=== PATIENT | female | born 1960 | race Two or more races ===

== ENCOUNTER 2019-02-14 17:49 | Inpatient (IN) | payer MEDICAID ==
[~2019-02-14] VITALS: Ht 157.5 cm; Wt 63.6 kg
--- NOTE | 2019-02-14 17:52 | NUR ---
ED Nurse Note: PT FROM [facility] BROUGHT IN BY [id number] DUE TO TRACH MALFUNCTION. EMS REPORTS THAT PT WAS COUGHING X 2 DAYS. PT WAS SEEN BY A PULMONARY DOCTOR THIS MORNING RECOMMENDED TO BE EVALUATED. AAO X4, FOLLOWS COMMANDS AND SPEAKS WITHOUT DIFFICULTY.
[2019-02-14] MEDS ORDERED: ATORVASTATIN CA20 MG GT (17:59)
[2019-02-14] MEDS ORDERED: PROTONIX20 MG GT (17:59)
[2019-02-14] MEDS ORDERED: MULTI-DELYN237 ML GT (17:59)
[2019-02-14] MEDS ORDERED: NORCO 10-325 T1 EACH GT (17:59)
[2019-02-14] MEDS ORDERED: COLACE100 MG GT (17:59)
[2019-02-14] MEDS ORDERED: MILK OF MA400 MG/51 GT (17:59)
[2019-02-14 18:00] VITALS: BP 126/78
--- NOTE | 2019-02-14 18:13 | NUR ---
ED Nurse Note: RT GERMAINE AT THE BED SIDE.
--- NOTE | 2019-02-14 18:45 | NUR ---
ED Nurse Note: RT AT THE BED SIDE AND REPORTS THAT HE WAS UNABLE TO INSERT A CATHETER INSIDE THE TRACH CANNULA AND THERE MIGHT BE A POSSIBLE OBSTRUCTION. DR MICHAEL AWARE.
--- NOTE | 2019-02-14 18:48 | NUR ---
ED Nurse Note: RT AT THE BED SIDE FOR CXR.
--- NOTE | 2019-02-14 19:13 | NUR ---
ED Nurse Note: COLLECTED BLOOD THEN SENT.
--- NOTE | 2019-02-14 19:20 | NUR ---
HAND-OFF: Report given to SYDNI MCKOY.
[2019-02-14 19:27] LABS: BASOPHILS % (AUTO) 1.4 % (0.0-2.0); HEMATOCRIT 35.2 % (37.0-47.0); HEMOGLOBIN 12.5 G/DL (12.0-16.0); LYMPHOCYTES % (AUTO) 26.4 % (20.0-45.0); MEAN CORPUSCULAR VOLUME 85 FL (80-99); MONOCYTES % (AUTO) 7.4 % (1.0-10.0); NEUTROPHILS % (AUTO) 64.8 % (45.0-75.0); PLATELET COUNT 392 K/UL (150-450); RED BLOOD COUNT 4.13 M/UL (4.20-5.40); RED CELL DISTRIBUTION WIDTH 11.8 % (11.6-14.8); WHITE BLOOD COUNT 11.7 K/UL (4.8-10.8)
[2019-02-14 19:37] LABS: INR 0.9 (0.9-1.1)
[2019-02-14 19:43] LABS: ANION GAP 6 mmol/L (5-15); BLOOD UREA NITROGEN 9 mg/dL (7-18); CARBON DIOXIDE 31 MMOL/L (21-32); CHLORIDE 105 MMOL/L (98-107); CREATININE 0.7 MG/DL (0.55-1.30); POTASSIUM 3.9 MMOL/L (3.5-5.1); SODIUM 142 MMOL/L (136-145)
[2019-02-14 19:45] LABS: ALANINE AMINOTRANSFERASE 33 U/L (12-78); ALBUMIN 3.5 G/DL (3.4-5.0); ALBUMIN/GLOBULIN RATIO 0.7 (1.0-2.7); ALKALINE PHOSPHATASE 162 U/L (46-116); ASPARTATE AMINO TRANSFERASE 14 U/L (15-37); BILIRUBIN,TOTAL 0.4 MG/DL (0.2-1.0)
--- NOTE | 2019-02-14 19:58 | Diagnostic Imaging Report ---
Indication: Tube placement Technique: One view of the chest Comparison: none Findings: There is a tracheostomy in good position. There is right-sided presumed ventriculoperitoneal shunt tubing. There is a right arm PICC, tip of which terminates at the C7 level of the right subclavian vein. Lungs and pleural spaces are clear. The heart size is normal. Impression: No acute process Tube and line positions as described This agrees with the preliminary interpretation provided overnight by [facility] teleradiology service.
--- NOTE | 2019-02-14 20:20 | NUR ---
ED Nurse Note: Patient reports headache, ERMD informed and orders to be carried out.
[2019-02-14] MEDS ORDERED: Acetaminophen 500mg (ES) tab ORAL ONE (20:30)
--- NOTE | 2019-02-14 21:10 | NUR ---
ED Nurse Note: Called and rendered report to Orlando MCKOY.
--- NOTE | 2019-02-14 21:15 | NUR ---
ED Nurse Note: Patient escorted to floor by 2 RN's and coordinate measuring machine technician without incident.
--- NOTE | 2019-02-14 21:21 | Emergency Room Report ---
History of Present Illness General Chief Complaint: General Complaint Source: Patient, Family Member, EMS Present Illness HPI 58-year-old female presents ED for evaluation. Brought in by EMS from group home facility. Is here for evaluation of trach. Has been coughing for the last several days. Was seen by varnisher apprentice today who recommended a trach to be replaced. Daughter at bedside. Upon arrival patient showing no signs of distress. Unable to provide any additional history at this time. No reported fevers or chills. No chest pain. No shortness of breath. No other aggravating relieving factors. Denies any other associated symptoms Allergies: Coded Allergies: No Known Allergies (Unverified , 02/14/19) Patient History Past Medical History: DM Past Surgical History: none Pertinent Family History: none Social History: Denies: smoking, alcohol use, drug use Now: No Immunizations: UTD Reviewed Nursing Documentation: PMH: Agreed; PSxH: Agreed Nursing Documentation-PMH Past Medical History: No History, Except For Hx Diabetes: Yes Review of Systems All Other Systems: limited Physical Exam Vital Signs Date Time Temp Pulse Resp B/P (MAP) Pulse Ox O2 Delivery O2 Flow Rate FiO2 02/14/19 17:42 98.4 87 17 120/83 (95) 95 Trach Collar 4.0 Sp02 EP Interpretation: reviewed, normal General Appearance: no apparent distress, non-toxic Head: normocephalic Eyes: bilateral eye normal inspection, bilateral eye PERRL ENT: hearing grossly normal, normal pharynx, no angioedema, normal voice Neck: full range of motion, supple/symm/no masses, tracheotomy - unable to cannulate. Respiratory: chest non-tender, lungs clear, normal breath sounds, speaking full sentences Cardiovascular #1: regular rate, rhythm, no edema Gastrointestinal: normal inspection Rectal: deferred Genitourinary: no CVA tenderness Musculoskeletal: normal inspection Neurologic: alert, motor strength/tone normal Psychiatric: other - nonverbal Skin: other - see nursin skin notes Lymphatic: normal inspection Procedures Critical Care Time Critical Care Time i. I feel this is a highly complex case requiring extensive working including EKG/Rhythm strip, Xray/CT/US, Blood/urine lab work, repeat exams while in ED, and administration of strong opiates/narcotics for pain control, admission to hospital or close patient follow up. Total time: 30 min bedside evaluation and treatment excludes procedures (EKG). Reason for critical care: malfunctioning trach Possible complications: hypotension, hypertension, TN, shock, arrhythmias, metabolic acidosis, end organ damage, respiratory failure. Interventions: labs, EKG, CXR, attempt to replace trach, discussion with billet shearer/varnisher apprentice Course: Presenting for trach replacement. No distress. Upon evaluation trach does not appear to be fully flush to the skin. Unable to cannulate or place suction catheter through the trach. I am concerned that it is not in place. To attempt placement in the ED could cause hemorrhage or loss of airway. Discussed with surgeon who recommends replacement via bronchoscopy. Admit to the ICU. Consultations: nursing staff, EMS, family Performed by: Dr Womack Tolerated well condition = critical j. because of unstable vital signs this patient had a condition that could potentially threaten life or limb. I feel this is a critical patient who required my full attention while patient was considered critical. Total Critical Care Time excluding procedures was greater than 35 minutes Medical Decision Making Diagnostic Impression: Primary Impression: Malfunction of tracheostomy ER Course Hospital Course 58 yo F presents for trach replacement Differential diagnoses include: Pneumonia, disloged trach, CHF Clinical course Patient placed on stretcher. On monitor tech. After initial 3, physical exam reveals middle-aged female no acute distress. On exam the trach does not appear to be completely flush to the skin. With a respiratory therapist at bedside we were unable to cannulate the tracheostomy. Concerned that it does not in place or there appears to be a stenosis of the trachea. At this time I do not believe it is to change tracheostomy at bedside as we could lose the airway or cause a hemorrhage. discussed with surgery Dr. Bustillos and he agrees. Recommends changing of tracheostomy at via bronchoscopy labs - minimal leukocytosis, hb/hct stable, electrolytes ok, coags ok EKG - NSR no acute ischemic changes inteprreted by me CXR - no infiltrtes, no PTX, tracheostomy tube noted Patient satting well. No distress. Will be admitted to the ICU for close monitoring Case discussed with Dr. Alexander and he agreed to the patient to his service for further care and support I feel this is a highly complex case requiring extensive working including EKG/ Rhythm strip, Xray/CT/US, Blood/urine lab work, repeat exams while in ED, and administration of strong opiates/narcotics for pain control, admission to hospital or close patient follow up. Diagnosis - malfunction of tracheostomy Patient admitted to ICU Labs Test 02/14/19 19:10 White Blood Count 11.7 K/UL (4.8-10.8) Red Blood Count 4.13 M/UL (4.20-5.40) Hemoglobin 12.5 G/DL (12.0-16.0) Hematocrit 35.2 % (37.0-47.0) Mean Corpuscular Volume 85 FL (80-99) Mean Corpuscular Hemoglobin 30.3 PG (27.0-31.0) Mean Corpuscular Hemoglobin Concent 35.6 G/DL (32.0-36.0) Red Cell Distribution Width 11.8 % (11.6-14.8) Platelet Count 392 K/UL (150-450) Mean Platelet Volume 5.7 FL (6.5-10.1) Neutrophils (%) (Auto) 64.8 % (45.0-75.0) Lymphocytes (%) (Auto) 26.4 % (20.0-45.0) Monocytes (%) (Auto) 7.4 % (1.0-10.0) Eosinophils (%) (Auto) 0.0 % (0.0-3.0) Basophils (%) (Auto) 1.4 % (0.0-2.0) Prothrombin Time 10.0 SEC (9.30-11.50) Prothromb Time International Ratio 0.9 (0.9-1.1) Activated Partial Thromboplast Time 30 SEC (23-33) Sodium Level 142 MMOL/L (136-145) Potassium Level 3.9 MMOL/L (3.5-5.1) Chloride Level 105 MMOL/L (98-107) Carbon Dioxide Level 31 MMOL/L (21-32) Anion Gap 6 mmol/L (5-15) Blood Urea Nitrogen 9 mg/dL (7-18) Creatinine 0.7 MG/DL (0.55-1.30) Estimat Glomerular Filtration Rate > 60 mL/min (>60) Glucose Level 108 MG/DL (74-106) Calcium Level 9.0 MG/DL (8.5-10.1) Total Bilirubin 0.4 MG/DL (0.2-1.0) Aspartate Amino Transf (AST/SGOT) 14 U/L (15-37) Alanine Aminotransferase (ALT/SGPT) 33 U/L (12-78) Alkaline Phosphatase 162 U/L (46-116) Total Protein 8.2 G/DL (6.4-8.2) Albumin 3.5 G/DL (3.4-5.0) Globulin 4.7 g/dL Albumin/Globulin Ratio 0.7 (1.0-2.7) EKG Diagnostic Results Rate: normal Rhythm: NSR ST Segments: no acute changes ASA given to the pt in ED: No Rhythm Strip Diag. Results EP Interpretation: yes Rhythm: NSR, no PVC's, no ectopy Chest X-Ray Diagnostic Results Chest X-Ray Diagnostic Results : Chest X-Ray Ordered: Yes # of Views/Limited/Complete: 1 View Indication: Other - trach placement EP Interpretation: Yes Interpretation: no consolidation, no effusion, no pneumothorax, no acute cardiopulmonary disease, other - tracheostomy noted Impression: No acute disease Electronically Signed by: Electronically signed by Jaylon Womack MD Last Vital Signs Date Time Temp Pulse Resp B/P (MAP) Pulse Ox O2 Delivery O2 Flow Rate FiO2 02/14/19 21:08 98.4 02/14/19 18:00 87 20 126/78 98 Trach Collar 5.0 Status: improved Disposition: ADMITTED INPATIENT Condition: Critical Referrals: Wil Alexander MD (PCP) Jaylon Womack MD Feb 14, 2019 21:21
[2019-02-14 21:32] VITALS: BP 132/84
[2019-02-14 21:41] VITALS: BP 116/76
[2019-02-14 22:00] VITALS: BP 109/74
[2019-02-14] MEDS ORDERED: Milk of Magnesia 30ml Ud GT PRN (22:00)
[2019-02-14] MEDS ORDERED: HYDROcodone/Acetamin 10/325 tab GT PRN (22:00)
--- NOTE | 2019-02-14 22:04 | NUR ---
NURSE NOTES: 2129PM : RECEIVED PATIENT FROM ER NURSE EAN TROY VIA ELIEL. PATIENT ALERT, ORIENTED X3, DENIED PAIN OR SOB AT THAT TIME, ON TRACH COLLAR 5LPM, O2 SATURATION 100% NOTED, HEART RATE 80'S/MIN SINUS RHYTHM, ABDOMEN SOFT, NO N/V NOTED, G TUBE INTACT AND PATENT, NO RESIDUE NOTED, MID LINE TO RIGHT UPPER ARM, INTACT AND PATENT, SIN IS INTACT, GIVEN HOSPITAL ORIENTATION, PROVIDED CALL LIGHT WITHIN REACH, ON BED ALARM AND LOCKED, MADE LOWER BED POSITION, WILL CONTINUE TO MONITOR. 2144PM : PT'S DAUGHTER STAYED AT BEDSIDE.
[2019-02-14] MEDS ORDERED: Albuterol/Ipratropium 3ml neb HHN PRN (22:15)
[2019-02-14 22:30] VITALS: BP 113/76
[2019-02-14 23:00] VITALS: BP 106/72
--- NOTE | 2019-02-14 23:20 | NUR ---
NURSE NOTES: PATIENT ASLEEP STATUS, NO PAIN OR DISTRESS NOTED, FAMILY AT BEDSIDE, WILL CONTINUE PLAN OF CARE.
[2019-02-14] MEDS: NovoLOG Insulin Flexpen SUBQ SCH (23:49)
[2019-02-15] VITALS (24 sets, daily range): BP systolic 99–145; BP diastolic 64–114
--- NOTE | 2019-02-15 00:35 | Consultation ---
History of Present Illness General Date patient seen: Feb 14, 2019 Reason for Hospitalization: General Complaint Present Illness HPI 58-year-old female who was brought in by EMS from [facility] facility [place] [facility] [place] after noting recent trach malfunction. Has been coughing for the last several days. Was seen by laborer dairy farm today who recommended a trach to be replaced. Daughter at bedside in ED and now patient alone. Upon arrival patient showing no signs of distress. Unable to provide any additional history at this time. No reported fevers or chills. No chest pain. No shortness of breath. No other aggravating relieving. Surgery called to evaluate and assist with care. patient seen chart reviewed, patient examined. Allergies: Coded Allergies: No Known Allergies (Unverified , 02/14/19) Medication History Scheduled Atorvastatin Calcium* (Atorvastatin Calcium*), 20 MG GT BEDTIME, (Reported) Docusate Sodium* (Colace*), 100 MG GT DAILY, (Reported) Multivitamin Liquid* (Multi-Delyn*), 15 ML GT DAILY, (Reported) Pantoprazole Sodium (Protonix), 40 MG GT DAILY, (Reported) Scheduled PRN Hydrocodone Bit/Acetaminophen 10-325* ([place] 10-325*), 1 TAB GT Q4H PRN for For Pain, (Reported) Magnesium Hydroxide* (Milk Of Magnesia*), 30 ML GT DAILY PRN for Constipation, ( Reported) Patient History Limited by: medical condition History Provided By: Medical Record, PMD Healthcare decision maker Resuscitation status Advanced Directive on File Past Medical/Surgical History Past Medical/Surgical History: (1) Malfunction of tracheostomy Review of Systems Review of Symptoms cannot obtain given medical condition Physical Exam Physical Exam General appearance: no distress, appears stated age Head: Normocephalic, without obvious abnormality, atraumatic Eyes: conjunctivae/corneas clear. PERRL, EOM's intact. Fundi benign Throat: Lips, mucosa, and tongue normal. Teeth and gums normal Neck: supple, symmetrical, trachea midline, no adenopathy, trach malpositioned Lungs: decreased auscultation bilaterally Heart: regular rate and rhythm, S1, S2 normal, no murmur, click, rub or gallop Abdomen: soft, non-tender. Bowel sounds normal. No masses, no organomegaly Extremities: extremities normal, atraumatic, no cyanosis or edema Pulses: 2+ and symmetric Skin: Skin color, texture, turgor normal. No rashes or lesions Neurologic: Grossly normal Last 24 Hour Vital Signs Date Time Temp Pulse Resp B/P (MAP) Pulse Ox O2 Delivery O2 Flow Rate FiO2 02/14/19 23:35 Trach Collar 10.0 30 02/14/19 23:34 97 Trach Collar 10.0 30 02/14/19 23:00 79 15 106/72 (83) 98 02/14/19 22:31 Trach Collar 5.0 02/14/19 22:30 85 17 113/76 (88) 100 02/14/19 22:00 82 20 109/74 (86) 97 02/14/19 21:41 85 20 116/76 (89) 98 02/14/19 21:32 91 20 132/84 (100) 99 02/14/19 21:30 98.7 91 12 02/14/19 21:15 98.4 87 20 126/78 98 Trach Collar 5.0 02/14/19 21:08 98.4 02/14/19 18:00 98.4 87 20 126/78 98 Trach Collar 5.0 02/14/19 17:52 82 16 Trach Collar 5.0 02/14/19 17:42 98.4 87 17 120/83 (95) 95 Trach Collar 4.0 Intake and Output 02/14/19 02/15/19 19:00 07:00 Intake Total 0 ml 0 ml Output Total 350 ml Balance 0 ml -350 ml Intake Oral 0 ml 0 ml Output Urine Total 350 ml # Voids 1 Laboratory Tests Test 02/14/19 19:10 White Blood Count 11.7 K/UL (4.8-10.8) H Red Blood Count 4.13 M/UL (4.20-5.40) L Hemoglobin 12.5 G/DL (12.0-16.0) Hematocrit 35.2 % (37.0-47.0) L Mean Corpuscular Volume 85 FL (80-99) Mean Corpuscular Hemoglobin 30.3 PG (27.0-31.0) Mean Corpuscular Hemoglobin Concent 35.6 G/DL (32.0-36.0) Red Cell Distribution Width 11.8 % (11.6-14.8) Platelet Count 392 K/UL (150-450) Mean Platelet Volume 5.7 FL (6.5-10.1) L Neutrophils (%) (Auto) 64.8 % (45.0-75.0) Lymphocytes (%) (Auto) 26.4 % (20.0-45.0) Monocytes (%) (Auto) 7.4 % (1.0-10.0) Eosinophils (%) (Auto) 0.0 % (0.0-3.0) Basophils (%) (Auto) 1.4 % (0.0-2.0) Prothrombin Time 10.0 SEC (9.30-11.50) Prothromb Time International Ratio 0.9 (0.9-1.1) Activated Partial Thromboplast Time 30 SEC (23-33) Sodium Level 142 MMOL/L (136-145) Potassium Level 3.9 MMOL/L (3.5-5.1) Chloride Level 105 MMOL/L (98-107) Carbon Dioxide Level 31 MMOL/L (21-32) Anion Gap 6 mmol/L (5-15) Blood Urea Nitrogen 9 mg/dL (7-18) Creatinine 0.7 MG/DL (0.55-1.30) Estimat Glomerular Filtration Rate > 60 mL/min (>60) Glucose Level 108 MG/DL (74-106) H Calcium Level 9.0 MG/DL (8.5-10.1) Total Bilirubin 0.4 MG/DL (0.2-1.0) Aspartate Amino Transf (AST/SGOT) 14 U/L (15-37) L Alanine Aminotransferase (ALT/SGPT) 33 U/L (12-78) Alkaline Phosphatase 162 U/L (46-116) H Total Protein 8.2 G/DL (6.4-8.2) Albumin 3.5 G/DL (3.4-5.0) Globulin 4.7 g/dL Albumin/Globulin Ratio 0.7 (1.0-2.7) L Microbiology Date/Time Source Procedure Growth Status 02/14/19 19:00 Rectum Received Height (Feet): 5 Height (Inches): 2.00 Weight (Pounds): 152 Medications Current Medications Medications (Trade) Dose Ordered Sig/Mechelle Route PRN Reason Start Time Stop Time Status Last Admin Dose Admin Acetaminophen (Tylenol) 650 mg Q6HR PRN GT Mild Pain/Temp > 100.5 12/4/19 22:15 03/16/19 22:14 Acetaminophen/ Hydrocodone Bitart ([place] 10/325) 1 tab Q4H PRN GT For Pain 02/14/19 22:00 02/21/19 21:59 Albuterol/ Ipratropium (Albuterol/ Ipratropium) 3 ml Q6HR PRN HHN Shortness of Breath 02/14/19 22:15 02/19/19 22:14 Albuterol/ Ipratropium (Albuterol/ Ipratropium) 3 ml Q6HRT HHN 02/15/19 01:00 02/20/19 00:59 Atorvastatin Calcium (Lipitor) 20 mg BEDTIME GT 02/15/19 21:00 03/17/19 20:59 Dextrose (Dextrose 50%) 25 ml Q30M PRN IV Hypoglycemia 02/14/19 22:15 03/16/19 22:14 Dextrose (Dextrose 50%) 50 ml Q30M PRN IV Hypoglycemia 02/14/19 22:15 03/16/19 22:14 Docusate Sodium (Colace) 100 mg DAILY GT 02/15/19 09:00 03/17/19 08:59 Insulin Aspart (NovoLOG) Q6HR SUBQ 02/15/19 00:00 03/17/19 00:00 Lansoprazole (Prevacid) 30 mg DAILY@0630 GT 02/15/19 06:30 03/17/19 06:29 Magnesium Hydroxide (Mom) 30 ml DAILY PRN GT Constipation 02/14/19 22:00 03/16/19 21:59 Assessment/Plan Problem List: (1) Malfunction of tracheostomy Assessment & Plan: Trach malfunction trach is not positioned properly cannot adequately suction or manipulate recommend trach exchange patient currently stable recommend to be done this AM with bronch and possibly in the OR for airway protection rather [facility] patient stable cont with support will monitor discussed with ED cont ICU monitoring thank you will follow with recs ICD Codes: J95.03 - Malfunction of tracheostomy stoma SNOMED: [id number] Aaron Bustillos Feb 15, 2019 00:35
--- NOTE | 2019-02-15 00:36 | NUR ---
NURSE NOTES: SEEN THE PATIENT BY DR. VERA THAT SAID, " TOO DANGEROUS CHANGE TRACH TONIGHT, WILL BE TOMORROW." LELAND/ WAS AWARE.
[2019-02-15] MEDS: Albuterol/Ipratropium 3ml neb HHN SCH ×4 (00:48→19:40)
--- NOTE | 2019-02-15 02:17 | NUR ---
NURSE NOTES: PATIENT DENIED PAIN OR SOB, O2 SATURATION 100% NOTED ON FIO2 30% T-COLLAR, WILL CONTINUE TO MONITOR.
--- NOTE | 2019-02-15 04:30 | NUR ---
NURSE NOTES: MORNING CARE WAS DONE.
[2019-02-15] MEDS: NovoLOG Insulin Flexpen SUBQ SCH ×4 (06:00→23:30)
--- NOTE | 2019-02-15 06:42 | NUR ---
NURSE NOTES: PATIENT DENIED PAIN OR SOB, NO ACUTE DISTRESS NOTED AT THIS SHIFT, KEPT NPO ORDERED.
--- NOTE | 2019-02-15 07:24 | NUR ---
HAND-OFF: Report given to EAN ZENG.
--- NOTE | 2019-02-15 07:25 | NUR ---
NURSE NOTES: RECEIVED PATIENT FROM Steff SMILEY RN. PATIENT IS LYING IN BED, ASLEEP BUT AROUSABLE. PATIENT IS RESPONSIVE. HOOKED TO BINGO CHECKER. SHILEY 8, ON TRACH COLLAR, FiO2 30% AT 8L. SATING AT 100%. NPO FOR NOW. GT NOTED, DRESSING DRY AND INTACT. WITH R UA MIDLINE, 2 LUMEN, TKO. CALL LIGHT WITHIN REACH. BED AT LOWEST POSITION. SIDE RAILS UP. WILL CONTINUE TO MONITOR.
[2019-02-15] MEDS ORDERED: Docusate 100mg/10ml Liq GT SCH (09:00)
--- NOTE | 2019-02-15 09:30 | NUR ---
NURSE NOTES: STILL NPO. SON SEEN AT THE BEDSIDE. NO SIGNS OF DISTRESS.
--- NOTE | 2019-02-15 11:22 | NUR ---
NURSE NOTES: PATIENT TURNED AND REPOSITIONED. STILL ON T-COLLAR. NO SIGNS OF DISTRESS. DGT AT THE BEDSIDE. WILL CONTINUE TO MONITOR.
--- NOTE | 2019-02-15 12:02 | NUR ---
NURSE NOTES: SEEN AND EXAMINED BY DR JODY RN. CHANGED TRACH. FOR PROCEDURE TODAY. WILL CONTINUE TO MONITOR.
--- NOTE | 2019-02-15 12:02 | NUR ---
RESPIRATORY NOTE: Dr. Bustillos at bedside and changed trach to trach fenestrated Shiley, uncuffed size 6.0. Pt is tolerating well, no SOB or resp distress noted. Dressing changed. Pt is on 30%FiO2 8L cool aerosol, saturates at 96%. EAN Albarado at bedside and aware. Will continue to monitor pt closely.
--- NOTE | 2019-02-15 12:12 | NUR ---
RD ASSESSMENT & RECOMMENDATIONS SEE CARE ACTIVITY FOR COMPLETE ASSESSMENT DAILY ESTIMATED NEEDS: Needs based on Pulmonary, DM; 53kg adj 25-30 kcals/kg 1325- 1590 total kcals 1-1.5 g protein/kg 53- 80 g total protein 25-30 mL/kg 1325- 1590 total fluid mLs NUTRITION DIAGNOSIS: * Swallowing difficulty r/t respiratory status AEB pt adm w/ trach malfunction, on T-collar, PEG dep, currently NPO. CURRENT DIET: NPO PO DIET RECOMMENDATIONS: INSTITUTIONAL COOK EVAL rec before implementing oral diet. ENTERAL NUTRITION RECOMMENDATIONS: Glucerna 1.2 @50mL/hr x 24 hrs to provide 1200mL, 1440kcal, 72g pro, 966mL free H2O -When medically appropriate, initiate Glucerna 1.2 @20mL/hr, advancing 5-10mL q4-6 hrs until at goal -HOB > 30 degrees/flush per MD ADDITIONAL RECOMMENDATIONS: 1) Recalibrated bedscale for accurate wts: 171# bedscale vs 153# per SNF vs EMR 138# 2) Initiate TF when medically able 3) INSTITUTIONAL COOK eval for appropriate texture if pt is stable for oral grat/ diet 4) W/ TF, monitor tolerance and need for elemental formula
[2019-02-15] MEDS ORDERED: Omnipaque-300 100ml vial INJ PRN (12:15)
[2019-02-15] MEDS: Acetaminophen 650mg/20.3ml GT PRN ×2 (12:18→22:50)
--- NOTE | 2019-02-15 12:48 | Cardiology Report ---
APPROVED REPORT EKG Measurement Heart [id number] [id number] Normal sinus rhythm Left anterior fascicular block Abnormal ECG
--- NOTE | 2019-02-15 13:50 | NUR ---
NURSE NOTES: PATIENT SEEN RESTING. KEPT CLEAN AND DRY. DGT AND SON SEEN AT THE BEDSIDE. STILL ON T COLLAR, FIO2 30% AT 8L. WILL CONTINUE TO MONITOR.
--- NOTE | 2019-02-15 14:15 | History and Physical Report ---
DATE OF ADMISSION: 02/14/2019 REASON FOR ADMISSION: Tracheostomy malfunction. HISTORY: This is a 58-year-old unfortunate female with multiple medical problems. The patient presented for a tracheostomy change. However, the ER physician upon evaluation noted that the tracheostomy would require a surgical change in the operating room to confirm that there is no airway obstruction and upon exchange, the patient is currently stable in the ICU and is closely monitored. The patient has had no other acute issues and the transfer was mostly due to the tracheostomy change which was required. The patient was recently admitted for pneumonia and recently has been changed to my care. Care discussed and reviewed. Findings none acute. PAST MEDICAL HISTORY: Notable for respiratory failure, tracheostomy, chronic encephalopathy, diabetes, hypercholesterolemia, reflux disease. MEDICATIONS: Reviewed. ALLERGIES: Reviewed. SOCIAL HISTORY: Nonsmoker and nondrinker. Bedbound. Resides at a subacute. REVIEW OF SYSTEMS: Otherwise difficult to obtain. PHYSICAL EXAMINATION: GENERAL: A well-developed female, comfortable at present. VITAL SIGNS: Reviewed. Blood pressure 134/70, respirations 18, saturations 98%, temperature 98.8. HEENT: Negative. The patient's oropharynx moist. The patient is off the ventilator and on trach collar. NECK: Supple. No adenopathy. LUNGS: Moderate air entry. Some rhonchi. CARDIAC: S1, S2. Regular rate and rhythm without murmurs, rubs, gallops. ABDOMEN: Soft, nontender, nondistended. G-tube in place. EXTREMITIES: No cyanosis, clubbing, or edema. SKIN: Exam noted and reviewed. LABORATORY DATA: Reviewed. White count 11.7, hematocrit 35, platelets of 392. Chemistries noted and reviewed. Overall fairly stable. BUN is within normal limits. IMPRESSION: 1. Respiratory failure, possible tracheal obstruction, possibly due to granulation, unclear at this time. 2. History of recent pneumonia. No hypoxemia. 3. Diabetes. 4. Chronic encephalopathy. 5. Borderline leukocytosis, likely of no clear significance. RECOMMENDATIONS: Supportive care. Maintain intermediate medications. Surgical evaluation for OR for tracheostomy exchange and airway evaluation. Monitor clinically for further changes and discharge once stable and findings are clarified. Wil Alexander M.D. DR: BERNICE JOB#: [id number] CC: JAY
--- NOTE | 2019-02-15 14:34 | NUR ---
*-* INSURANCE *-* ALL AVAILABLE CLINICALS HAVE BEEN FAXED TO: [employer] [facility]U[employer]# [id number] NCM: KATYA [phone] [phone].....REVIEW/CLINICAL
--- NOTE | 2019-02-15 15:28 | Surgery Progress Note ---
Surgery Progress Note Subjective Additional Comments trach changed at bedside see note required bronchoscopy and CT doing well Objective Last 24 Hour Vital Signs Date Time Temp Pulse Resp B/P (MAP) Pulse Ox O2 Delivery O2 Flow Rate FiO2 02/15/19 13:14 78 16 100 Trach Collar 8.0 30 89 26 95 02/15/19 13:04 95 Trach Collar 8.0 30 02/15/19 12:02 8.0 30 02/15/19 12:00 8.0 30 02/15/19 12:00 Trach Collar 8.0 02/15/19 12:00 98.7 96 20 145/114 (124) 99 02/15/19 11:00 95 22 127/114 (118) 99 02/15/19 10:00 88 17 116/74 (88) 98 02/15/19 09:00 89 25 115/75 (88) 98 02/15/19 08:00 88 20 99/73 (82) 99 02/15/19 08:00 86 02/15/19 08:00 Trach Collar 8.0 02/15/19 08:00 8.0 30 02/15/19 07:33 75 18 100 Trach Collar 8.0 30 72 15 100 02/15/19 07:23 100 Trach Collar 8.0 30 02/15/19 07:00 77 18 103/76 (85) 98 02/15/19 06:00 74 18 106/73 (84) 99 02/15/19 05:00 73 18 114/72 (86) 100 02/15/19 04:00 Trach Collar 8.0 02/15/19 04:00 98.8 84 16 127/73 (91) 98 02/15/19 04:00 8.0 30 02/15/19 04:00 84 02/15/19 03:00 75 19 106/70 (82) 100 02/15/19 02:00 75 15 109/70 (83) 99 02/15/19 01:00 70 20 109/70 (83) 100 02/15/19 00:50 72 18 100 Trach Collar 8.0 30 76 21 97 02/15/19 00:49 77 21 97 Trach Collar 8.0 30 02/15/19 00:00 Trach Collar 8.0 02/15/19 00:00 8.0 30 02/15/19 00:00 98.8 80 20 116/65 (82) 96 02/15/19 00:00 80 02/14/19 23:35 Trach Collar 8.0 30 02/14/19 23:34 97 Trach Collar 8.0 30 02/14/19 23:00 79 15 106/72 (83) 98 02/14/19 22:31 Trach Collar 5.0 02/14/19 22:30 85 17 113/76 (88) 100 02/14/19 22:00 82 20 109/74 (86) 97 02/14/19 21:41 85 20 116/76 (89) 98 02/14/19 21:36 86 02/14/19 21:32 91 20 132/84 (100) 99 02/14/19 21:30 98.7 91 12 02/14/19 21:15 98.4 87 20 126/78 98 Trach Collar 5.0 02/14/19 21:08 98.4 02/14/19 18:00 98.4 87 20 126/78 98 Trach Collar 5.0 02/14/19 17:52 82 16 Trach Collar 5.0 02/14/19 17:42 98.4 87 17 120/83 (95) 95 Trach Collar 4.0 I&O Intake and Output 02/14/19 02/15/19 18:59 06:59 Intake Total 0 ml 0 ml Output Total 350 ml Balance 0 ml -350 ml Intake Oral 0 ml 0 ml Output Urine Total 350 ml # Voids 1 Dressing: other Wound: other Drains: other Cardiovascular: RSR Respiratory: decreased breath sounds Abdomen: soft, present bowel sounds Extremities: no cyanosis, other Laboratory Tests Test 02/14/19 19:10 White Blood Count 11.7 K/UL (4.8-10.8) H Red Blood Count 4.13 M/UL (4.20-5.40) L Hemoglobin 12.5 G/DL (12.0-16.0) Hematocrit 35.2 % (37.0-47.0) L Mean Corpuscular Volume 85 FL (80-99) Mean Corpuscular Hemoglobin 30.3 PG (27.0-31.0) Mean Corpuscular Hemoglobin Concent 35.6 G/DL (32.0-36.0) Red Cell Distribution Width 11.8 % (11.6-14.8) Platelet Count 392 K/UL (150-450) Mean Platelet Volume 5.7 FL (6.5-10.1) L Neutrophils (%) (Auto) 64.8 % (45.0-75.0) Lymphocytes (%) (Auto) 26.4 % (20.0-45.0) Monocytes (%) (Auto) 7.4 % (1.0-10.0) Eosinophils (%) (Auto) 0.0 % (0.0-3.0) Basophils (%) (Auto) 1.4 % (0.0-2.0) Prothrombin Time 10.0 SEC (9.30-11.50) Prothromb Time International Ratio 0.9 (0.9-1.1) Activated Partial Thromboplast Time 30 SEC (23-33) Sodium Level 142 MMOL/L (136-145) Potassium Level 3.9 MMOL/L (3.5-5.1) Chloride Level 105 MMOL/L (98-107) Carbon Dioxide Level 31 MMOL/L (21-32) Anion Gap 6 mmol/L (5-15) Blood Urea Nitrogen 9 mg/dL (7-18) Creatinine 0.7 MG/DL (0.55-1.30) Estimat Glomerular Filtration Rate > 60 mL/min (>60) Glucose Level 108 MG/DL (74-106) H Calcium Level 9.0 MG/DL (8.5-10.1) Total Bilirubin 0.4 MG/DL (0.2-1.0) Aspartate Amino Transf (AST/SGOT) 14 U/L (15-37) L Alanine Aminotransferase (ALT/SGPT) 33 U/L (12-78) Alkaline Phosphatase 162 U/L (46-116) H Total Protein 8.2 G/DL (6.4-8.2) Albumin 3.5 G/DL (3.4-5.0) Globulin 4.7 g/dL Albumin/Globulin Ratio 0.7 (1.0-2.7) L Plan Problems: (1) Malfunction of tracheostomy Assessment & Plan: Trach malfunction trach is not positioned properly cannot adequately suction or manipulate recommend trach exchange patient currently stable trach changed bronch performed pending CT cont with support will monitor discussed with ED cont ICU monitoring thank you will follow with Aaron Delatorre Feb 15, 2019 15:28
--- NOTE | 2019-02-15 15:31 | Operative Note - PDOC ---
Operative Note Operative Note Date of Operation/Procedure: Feb 15, 2019 Pre-op Diagnosis: tracheostomy malfunction Procedure: 1. tracheostomy change 2. bronchoscopy Post-op Diagnosis: same as pre-op plus - tracheal obstruction/ stricture Surgeon: Aaron Bustillos MD Anesthesia: other Specimen: none Complications: none Condition: stable Estimated Blood Loss: none Implant(s) used?: Yes - 6f shiley fen Indications for Procedure This is a 58-year-old female with history of decompensation requiring tracheostomy placement who is been on ventilator support prior and since weaned off but still requires tracheal support. Tracheal malfunction and patient was sent to the hospital for evaluation. Patient seen last night and decision was made given condition to postpone trach change until this morning and more favorable conditions. Tracheostomy exchange indicated and recommended. Family at bedside. Patient awake and alert SPECT understanding and consented to procedure. Description of Procedure Patient was made comfortable at the bedside. Family present. All staff present and all equipment necessary present. Patient currently with a 8 Greek Shiley tracheostomy and plan to downgrade to 6 Greek for exchange. Current 8 Greek out few centimeters and malfunctioning. With the patient comfortable in the supine position the balloon of the prior tracheostomy was desufflated and trach removed. A 6 Greek by tracheostomy was inserted but identified resistance. Given this findings a bougie was placed and had mild difficulty in insertion but with some manipulation was able to get it into the proper positioning and 6 Greek Shiley placed over bougie without complication. Given these findings the and the resistance there is considerations for mass obstruction versus stricture. A bronchoscopy was performed and there was some tracheomalacia or potentially external extrinsic compression noted. Given these findings CT scan was ordered. Patient suction and ventilator appropriately. Suctioning requires manipulation given angulation. Patient currently stable. We will plan for CT. Discussed with patient and family. aAron Bustillos Feb 15, 2019 15:31
--- NOTE | 2019-02-15 16:00 | NUR ---
NURSE NOTES: PATIENT BROUGHT DOWN TO CT SCAN WITH CONTRAST. CONSENT TAKEN FROM THE DGT. WILL CONTINUE TO MONITOR.
--- NOTE | 2019-02-15 17:47 | Diagnostic Imaging Report ---
Clinical Indication: Shortness of breath, status post tracheostomy Technique: IV administration nonionic contrast. Spiral acquisition obtained through the chest. Multiplanar reconstructions generated. Total dose length product 813 mGycm. CTDIvol(s) 28, 33, 17 mGy. Dose reduction achieved using automated exposure control Comparison: none Reference made to plain radio 02/14/2019graph Findings: There is a tracheostomy in place. However, the tube does not enter the trachea, is located anterior to the trachea, tip in a soft tissue space that ends blindly. The trachea is patent but narrowed by about 50% probably due to extrinsic compression. There is some inflammation of the upper anterior mediastinal fat. Lungs demonstrate diffuse groundglass opacity bilaterally. There are some atelectatic changes at the lung bases. No dense consolidation, masses, nodules, or pleural fluid demonstrated. The heart size is normal. No pericardial effusion. No mediastinal or hilar mass or adenopathy. The thyroid is unremarkable. No axillary or chest wall mass or adenopathy demonstrated. The bones demonstrate degenerative spondylosis changes. There is a central compression fracture deformity of the T9 vertebral body. Included upper abdominal anatomy demonstrates gallstones. There is a gastrostomy, position of which is satisfactory. There is a ventriculoperitoneal shunt catheter present, traversing the right side of the chest and upper abdomen, tip in the subhepatic space. No associated fluid collection. There is a cyst seen in the left kidney. Impression: Malposition of the tracheostomy, as described, not within the trachea its this critical value finding was phoned to Dr. Bustillos at the time of interpretation Approximately 50% tracheal narrowing posterior to the tracheostomy, probably due to extrinsic compression Bilateral pulmonary parenchymal groundglass opacity, likely on the basis of mild pulmonary edema T9 vertebral body compression fracture deformity, age-indeterminate. Consider MRI for better characterization if considered clinically relevant Gastrostomy in good position Ventriculoperitoneal shunt noted Incidental finding left renal cyst The CT scanner at [facility] is accredited by the [employer] and the scans are performed using protocols designed to limit radiation exposure to as low as reasonably achievable to attain images of sufficient resolution adequate for diagnostic evaluation.
--- NOTE | 2019-02-15 18:00 | NUR ---
NURSE NOTES: PATIENT KEPT CLEAN AND DRY. WILL CONTINUE TO MONITOR.
--- NOTE | 2019-02-15 19:20 | NUR ---
HAND-OFF: Report given to Steff Fitzpatrick RN.
--- NOTE | 2019-02-15 19:22 | NUR ---
NURSE NOTES: SEEN THE PATIENT BY DR. VERA THAT MD EXPLAINED ABOUT CT OF CHEST RESULT. DOCTOR SAID, PATIENT NEED MECHANICAL VENTILATOR IF SOB.
--- NOTE | 2019-02-15 19:56 | NUR ---
NURSE NOTES: PT'S SONS STAYED AT BEDSIDE. PATIENT ALERT, ORIENTED X3, DENIED PAIN OR DISTRESS AT THIS TIME. RESPIRATION REGULAR, [place]NE[place] ON ROOM AIR, O2 SATURATION OVER 93% NOTED, TRACH SITE COVERED DRY GAUZE, NO OOZING OR BLEEDING NOTED, DRIED COUGH NOTED, HEART RATE 90'S/MIN SINUS RHYTHM, ABDOMEN SOFT, NO N/V, G TUBE INTACT AND PATENT, ONGOING GLUCERNA 20ML/HR, NO RESIDUE NOTED, KEPT HOB OVER 30 DEGREES, MID LINE TO RIGHT UPPER ARM, INTACT AND PATENT, DRIED AND CLEANED DRESSING STATUS, PROVIDED CALL LIGHT WITHIN REACH, MADE LOWER BED POSITION, ON BED ALARM AND LOCKED, KEPT SZ PRECAUTION, WILL CONTINUE TO MONITOR.
[2019-02-15] MEDS ORDERED: Atorvastatin 20mg tab GT SCH (21:00)
--- NOTE | 2019-02-15 23:02 | NUR ---
NURSE NOTES: GIVEN TYLENOL 650MG VIA G TUBE FOR HEADACHE AT 2250PM. PATIENT CALM, NO SPREAD PAIN STATUS, WILL CONTINUE TO MONITOR.
[2019-02-16] VITALS (22 sets, daily range): BP systolic 53–131; BP diastolic 11–87
[2019-02-16] MEDS: Albuterol/Ipratropium 3ml neb HHN SCH ×3 (00:26→13:18)
--- NOTE | 2019-02-16 00:34 | NUR ---
NURSE NOTES: PT'S DAUGHTER STAYED AT BEDSIDE, PATIENT ASLEEP STATUS, NO SOB NOTED ON ROOM AIR, O2 SATURATION OVER 96% NOTED, WILL CONTINUE TO MONITOR.
[2019-02-16] MEDS ORDERED: Albuterol/Ipratropium 3ml neb HHN SCH (01:00)
[2019-02-16] MEDS ORDERED: HYDROcodone/Acetamin 10/325 tab GT PRN ×3 (02:00→20:07)
--- NOTE | 2019-02-16 02:00 | NUR ---
NURSE NOTES: NO ACUTE DISTRESS NOTED.
--- NOTE | 2019-02-16 04:13 | NUR ---
NURSE NOTES: PATIENT COMPLAINED SOB AND SBP BELOW 80MMHG NOTED WHILE ASLEEP THAT HELD FEEDING, KEPT HOB OVER 45 DEGREES AND THEN NO MORE SOB NOTED, O2 SATURATION OVER 94% NOTED ON ROOM AIR AT 0335AM. VSS, NO SOB NOTED, O2 SATURATION 96% NOTED AT THIS TIME, WILL CONTINUE TO MONITOR.
[2019-02-16] MEDS: NovoLOG Insulin Flexpen SUBQ SCH ×4 (05:56→23:07)
[2019-02-16] MEDS ORDERED: NovoLOG Insulin Flexpen SUBQ SCH (06:00)
[2019-02-16] MEDS ORDERED: Acetaminophen 650mg/20.3ml GT PRN ×3 (06:00→20:07)
[2019-02-16] MEDS ORDERED: Albuterol/Ipratropium 3ml neb HHN PRN ×3 (06:00→20:07)
--- NOTE | 2019-02-16 06:12 | NUR ---
NURSE NOTES: PATIENT DENIED SOB OR PAIN AT THIS TIME.
--- NOTE | 2019-02-16 07:20 | NUR ---
HAND-OFF: Report given to EAN NICHOLS.
--- NOTE | 2019-02-16 07:33 | NUR ---
NURSE NOTES: LATE ENTRY: RECEIVED REPORT FROM NIGEL MCKOY. PT RESTING IN BED. OPENS EYES SPONTANEOUSLY, A/0X 3. PT VERBAL, ON R.A, SATING 99%. VS STABLE. NO C/O PAIN OR SOB. PT APPEARS LOW ENERGY. SON AT BEDSIDE. BILATERAL LUNG SOUNDS DIMINISHED, NO COUGH, OR CREPITUS NOTED. ABDOMEN TENDER TO PALPATION, PT C/O OF GAS., NO BM AT THIS TIME. BOWEL SOUNDS HYPOACTIVE. G-TUBE IN PLACE, TUBE FEEDING RUNNING GLUCERNA 1.2 @20ML/HR, GOAL IS 50ML/HR. PT CONTINENT, VOIDS. BILATERAL RADIAL AND PEDAL PULSES. SKIN INTACT. OCCLUSIVE DRESSING OVER TRACH STOMA, NO DRAINAGE NOTED. BED LOCKED, LOW IN POSITION, CALL LIGHT IN REACH. ZONE 1. STANDARD PRECAUTIONS IN PLACE. EDUCATION PROVIDED ON MEDICATION SIDE EFFECTS, INFORMED OF PLAN OF CARE AND POSSIBLE TRANSFER.
[2019-02-16] MEDS ORDERED: Milk of Magnesia 30ml Ud GT PRN ×3 (09:00→20:08)
[2019-02-16] MEDS ORDERED: Docusate 100mg/10ml Liq GT SCH ×2 (09:00)
--- NOTE | 2019-02-16 09:00 | NUR ---
NURSE NOTES: CALLED [facility] REGARDING PT STATUS, TRANSFER, NEED FOR AM LABS AND DUPLEX OR DVT PROP. AWAITING CALL BACK
--- NOTE | 2019-02-16 09:36 | NUR ---
CASE MANAGEMENT:REVIEW 58 YR OLD FEMALE BIBA FROM [facility] CC; TRACHEOSTOMY MALFUNCTION SI: 98.4 87 17 120/83 95% ON TRACH COLLAR W/4L WBC+11.7 IS: TYLENOL PO CXR : TO ICU PLAN: TO SURGERY FOR TRACHEOSTOMY CHANGE AND BRONCHOSCOPY 02/16/19 SI: TRACHEAL OBSTRUCTION/STRICTURE POD #1....S/P TRACH REMOVED AND BRONCHOSCOPY 98.5 83 18 97/62 94% ON RA IS: LIPITOR GT QHS PREVACID GT QD DUONEB HHN Q6HRS RTC : ICU STATUS DCP: [facility] PLAN: CLOSE OBSERVATION WITHOUT TRACHEOSTOMY
--- NOTE | 2019-02-16 09:54 | Pulmonolgy Critical Care Note ---
Critical Care - Asmt/Plan Assessment/Plan: Pulmonary Consultation HPI: Patient is a 58-year old woman noted to have Tracheostomy malposition. Tracheostomy subsequently repositioned in the OR, the patient is currently stable in the ICU and is closely monitored. The patient has had no other acute issues and the transfer was mostly due to the tracheostomy change which was required. The patient was recently admitted for pneumonia. Care discussed and reviewed. Findings none acute. PAST MEDICAL HISTORY: Notable for respiratory failure, tracheostomy, chronic encephalopathy, diabetes, hypercholesterolemia, reflux disease. PHYSICAL EXAMINATION: GENERAL: A well-developed female, comfortable at present. VITAL SIGNS NOTED HEENT: Negative. The patient's oropharynx moist. The patient is off the ventilator and on trach collar. NECK: Supple. No adenopathy. LUNGS: Moderate air entry. Some rhonchi. CARDIAC: S1, S2. Regular rate and rhythm without murmurs, rubs, gallops. ABDOMEN: Soft, nontender, nondistended. G-tube in place. EXTREMITIES: No cyanosis, clubbing, or edema. SKIN: Exam noted and reviewed. LABORATORY DATA NOTED: Reviewed. White count 11.7, hematocrit 35, platelets of 392. Chemistries noted and reviewed. Overall fairly stable. BUN is within normal limits. IMPRESSION: 1. Respiratory failure, possible tracheal obstruction, possibly due to granulation, unclear at this time. 2. History of recent pneumonia. No hypoxemia. 3. Diabetes. 4. Chronic encephalopathy. 5. Borderline leukocytosis, likely of no clear significance. RECOMMENDATIONS: Supportive care. Maintain fpc medications. Surgical following. Monitor clinically for further changes and discharge once stable and findings are clarified. Critical Care - Objective Last 24 Hour Vital Signs Date Time Temp Pulse Resp B/P (MAP) Pulse Ox O2 Delivery O2 Flow Rate FiO2 02/16/19 08:00 83 18 97/62 (74) 94 02/16/19 08:00 Room Air 02/16/19 07:00 71 20 107/67 (80) 100 02/16/19 06:58 74 18 100 Room Air 83 16 97 02/16/19 06:57 100 Room Air 21 02/16/19 06:00 86 25 102/66 (78) 98 02/16/19 05:00 83 12 104/72 (83) 95 02/16/19 04:00 Room Air 02/16/19 04:00 98.5 95 21 98/61 (73) 96 02/16/19 03:18 86 14 92/60 (71) 96 02/16/19 03:10 86 02/16/19 03:04 85 18 88/67 (74) 91 02/16/19 02:00 83 21 82/52 (62) 95 02/16/19 01:00 94 23 90/50 (63) 94 02/16/19 00:38 100 Room Air 21 02/16/19 00:26 86 18 100 Room Air 88 18 98 02/16/19 00:00 Room Air 02/16/19 00:00 98.5 93 18 128/74 (92) 96 02/15/19 23:18 93 02/15/19 23:00 88 24 117/73 (88) 96 02/15/19 22:00 94 14 110/74 (86) 94 02/15/19 21:00 96 26 123/97 (106) 92 02/15/19 20:00 97.7 102 23 141/88 (105) 97 02/15/19 20:00 Room Air 02/15/19 19:59 98 Room Air 21 02/15/19 19:40 86 18 100 Room Air 82 16 98 02/15/19 19:07 87 02/15/19 19:00 97 21 128/83 (98) 99 02/15/19 18:00 83 21 122/77 (92) 98 02/15/19 17:00 81 10 117/69 (85) 98 02/15/19 16:00 Trach Collar 8.0 02/15/19 16:00 98.3 81 10 117/69 (85) 98 02/15/19 16:00 71 02/15/19 15:00 79 20 99/64 (76) 95 02/15/19 14:00 79 20 99/64 (76) 95 02/15/19 13:14 78 16 100 Trach Collar 8.0 30 89 26 95 02/15/19 13:04 95 Trach Collar 8.0 30 02/15/19 13:00 79 20 99/64 (76) 95 02/15/19 12:02 8.0 30 02/15/19 12:00 8.0 30 02/15/19 12:00 83 02/15/19 12:00 Trach Collar 8.0 02/15/19 12:00 98.7 96 20 145/114 (124) 99 02/15/19 11:00 95 22 127/114 (118) 99 02/15/19 10:00 88 17 116/74 (88) 98 Micro: Microbiology Date/Time Source Procedure Growth Status 02/14/19 19:00 Rectum Received Accucheck: 96 Critical Care - Subjective ROS Limited/Unobtainable: No FI02: 21 Sputum Amount: None Tube Feeding Amount: 20 I&O: Intake and Output 02/15/19 02/16/19 19:00 07:00 Intake Total 90 ml 470 ml Output Total 700 ml Balance 90 ml -230 ml Free Water 50 ml Tube Feeding 40 ml 210 ml Other 260 ml Output Urine Total 700 ml # Voids 1 2 Zain Morton MD Feb 16, 2019 09:54
--- NOTE | 2019-02-16 12:02 | NUR ---
NURSE NOTES: LATE ENTRY: PT RESTING IN BED. REQUEST LIGHTS OUT AND DOOR CRACKED. A/0X 3. PT VERBAL, ON R.A, SATING 98%. VS STABLE. NO C/O PAIN OR SOB. DAUGHTER AND FRIEND OF FAMILY AT BEDSIDE. PT USED BEDPAN, VOIDX1 LIGHT TRISHA URINE W/ STRONG ODOR. NO BM AT THIS TIME. BOWEL SOUNDS HYPOACTIVE. G-TUBE IN PLACE, TUBE FEEDING RUNNING GLUCERNA 1.2 @25ML/HR, GOAL IS 50ML/HR. OCCLUSIVE DRESSING OVER TRACH STOMA, NO DRAINAGE NOTED. BED LOCKED, LOW IN POSITION, CALL LIGHT IN REACH. STANDARD PRECAUTIONS IN PLACE. WILL CONTINUE TO MONITOR.
--- NOTE | 2019-02-16 12:54 | NUR ---
NURSE NOTES: ACCU CHECK 94 WNL, NO COVERAGE. ICE CREAM DIPPER HERE TO DRAW BLOOD, TECH HERE FOR LOWER EXTREMITY DUPLEX. FAMILY AT BEDSIDE. PT IN NO ACUTE DISTRESS.
[2019-02-16 13:18] LABS: ANION GAP 8 mmol/L (5-15); BLOOD UREA NITROGEN 12 mg/dL (7-18); CALCIUM 9.4 MG/DL (8.5-10.1); CARBON DIOXIDE 28 MMOL/L (21-32); CHLORIDE 107 MMOL/L (98-107); CREATININE 0.6 MG/DL (0.55-1.30); POTASSIUM 3.8 MMOL/L (3.5-5.1); SODIUM 143 MMOL/L (136-145)
--- NOTE | 2019-02-16 14:00 | NUR ---
NURSE NOTES: pt requested bedpan, voided, cleaned and assisted pt with position and pillows. currently in high fowlers, sating 95 %, BP 131/87, HR 84
--- NOTE | 2019-02-16 17:00 | NUR ---
HAND-OFF: Report given to JOSÉ MIGUEL RN. pt in no acute distress.
--- NOTE | 2019-02-16 19:29 | NUR ---
TRANSFER TO FLOOR: Patient transferred to SDU, per Dr. Alexander. Report given to Esteban MCKOY. Belongings and medications given to oncoming nurse. Family and or S/O informed of transfer.
--- NOTE | 2019-02-16 19:30 | NUR ---
NURSE NOTES: Received report from Fox Bolton- pt. in bed awake- A/O x's 3-4- Arabic speaking- sons at bedside, no signs or symptoms of acute cardiac or respiratory distress noted, bed alarm on, side rails up x's 3 and safety brakes engaged, comfort measures provided, pt. appears to be sating well on room air- no distress noted, Glucerna 1.5 running at 55cc/hr- no residual noted, pt. appears clean and dry, pt. teaching done and pt. oriented to room, full body assessment done- skin intact, Rt. upper arm midline intact and patent, safety measures continued, will continue with plan of care. Addendum: 02/16/19 at 2145 by MALI LINTON RN RN side rails padded for seizure precautions no seizure activity noted upon assessment. Addendum: 02/16/19 at 2147 by MALI LINTON RN RN correction to note above- pts. feeding was received at 25cc/hr- increased feeding to 35cc/hr- no residual noted. Will continue to monitor feeding and with plan of care.
[2019-02-16] MEDS ORDERED: Dyna-Hex 2% Top Sol 2oz TOPIC SCH ×3 (20:00)
[2019-02-16] MEDS ORDERED: Atorvastatin 20mg tab GT SCH ×3 (21:00)
--- NOTE | 2019-02-16 22:21 | Surgery Progress Note ---
Surgery Progress Note Subjective Procedure Performed 1. tracheostomy change 2. bronchoscopy Additional Comments improving since trach out doing well down graded no respiratory issues Objective Last 24 Hour Vital Signs Date Time Temp Pulse Resp B/P (MAP) Pulse Ox O2 Delivery O2 Flow Rate FiO2 02/16/19 20:00 Room Air 02/16/19 20:00 98.4 81 20 128/78 (95) 95 02/16/19 19:09 87 02/16/19 19:00 99 Room Air 21 02/16/19 18:00 88 20 102/69 (80) 93 02/16/19 17:03 94 17 131/87 (102) 92 02/16/19 17:00 92 18 53/11 (25) 94 02/16/19 16:00 98.6 92 24 123/74 (90) 94 02/16/19 16:00 Room Air 02/16/19 16:00 82 02/16/19 15:00 87 22 113/76 (88) 94 02/16/19 14:00 104 24 107/80 (89) 98 02/16/19 13:18 82 16 100 Room Air 84 18 99 02/16/19 13:18 100 Room Air 21 02/16/19 13:00 81 23 111/38 (62) 95 02/16/19 12:00 80 02/16/19 12:00 98.5 79 21 118/77 (91) 95 02/16/19 12:00 Room Air 02/16/19 11:00 80 22 111/73 (86) 93 02/16/19 10:00 84 23 104/66 (79) 96 02/16/19 09:00 98.6 81 19 99/64 (76) 95 02/16/19 08:00 83 18 97/62 (74) 94 02/16/19 08:00 Room Air 02/16/19 08:00 80 02/16/19 07:00 71 20 107/67 (80) 100 02/16/19 06:58 74 18 100 Room Air 83 16 97 02/16/19 06:57 100 Room Air 21 02/16/19 06:00 86 25 102/66 (78) 98 02/16/19 05:00 83 12 104/72 (83) 95 02/16/19 04:00 Room Air 02/16/19 04:00 98.5 95 21 98/61 (73) 96 02/16/19 03:18 86 14 92/60 (71) 96 02/16/19 03:10 86 02/16/19 03:04 85 18 88/67 (74) 91 02/16/19 02:00 83 21 82/52 (62) 95 02/16/19 01:00 94 23 90/50 (63) 94 02/16/19 00:38 100 Room Air 21 02/16/19 00:26 86 18 100 Room Air 88 18 98 02/16/19 00:00 Room Air 02/16/19 00:00 98.5 93 18 128/74 (92) 96 02/15/19 23:18 93 02/15/19 23:00 88 24 117/73 (88) 96 I&O Intake and Output 02/15/19 02/16/19 18:59 06:59 Intake Total 70 ml 470 ml Output Total 700 ml Balance 70 ml -230 ml Intake Oral 0 ml Free Water 50 ml Tube Feeding 20 ml 210 ml Other 260 ml Output Urine Total 700 ml # Voids 1 2 Dressing: dry Wound: clean Cardiovascular: RSR Respiratory: clear Abdomen: soft, flat, non-tender, present bowel sounds Extremities: no edema, no tenderness, no cyanosis Laboratory Tests Test 02/16/19 12:55 Sodium Level 143 MMOL/L (136-145) Potassium Level 3.8 MMOL/L (3.5-5.1) Chloride Level 107 MMOL/L (98-107) Carbon Dioxide Level 28 MMOL/L (21-32) Anion Gap 8 mmol/L (5-15) Blood Urea Nitrogen 12 mg/dL (7-18) Creatinine 0.6 MG/DL (0.55-1.30) Estimat Glomerular Filtration Rate > 60 mL/min (>60) Glucose Level 108 MG/DL (74-106) H Calcium Level 9.4 MG/DL (8.5-10.1) Plan Problems: (1) Malfunction of tracheostomy Assessment & Plan: Trach malfunction trach is not positioned properly cannot adequately suction or manipulate recommend trach exchange patient currently stable trach changed bronch performed CT noted false track adjacent to trach insertion with tube going in and out decannulated doing well d/c planning thank you will follow with Aaron Delatorre Feb 16, 2019 22:21
[2019-02-17] VITALS: BP 112/76
[2019-02-17] MEDS: Albuterol/Ipratropium 3ml neb HHN SCH ×3 (00:51→13:10)
[2019-02-17 04:00] VITALS: BP 100/61
[2019-02-17] MEDS: NovoLOG Insulin Flexpen SUBQ SCH ×2 (05:15→12:39)
--- NOTE | 2019-02-17 06:37 | NUR ---
NURSE NOTES: Left message for Dr. Alexander- regarding (+) VRE culture- awaiting for call back from doctor.
--- NOTE | 2019-02-17 07:20 | NUR ---
HAND-OFF: Report given to Apryl RN, pt. remains stable and no signs of distress noted- nurse aware to f/u with doctor regarding (+) VRE.
--- NOTE | 2019-02-17 07:21 | NUR ---
NURSE NOTES: Received patient in bed. Awake, on room air. On continuous GTF as tolerated. No apparent distress. Contact isolation observed. Will continue plan of care.
[2019-02-17 08:00] VITALS: BP 96/61
[2019-02-17] MEDS ORDERED: Docusate 100mg/10ml Liq GT SCH (09:00)
--- NOTE | 2019-02-17 09:39 | Pulmonology Progress Note ---
Assessment/Plan Assessment/Plan IMPRESSION: 1. Respiratory failure, 2. History of recent pneumonia. No hypoxemia. 3. Diabetes. 4. Chronic encephalopathy. 5. Borderline leukocytosis, likely of no clear significance. PLAN d/w surgery dc to snf monitor as is respiratory care monitor airway impression, plan, and exam edited and reviewed in detail care discussed with RN Subjective ROS Limited/Unobtainable: Yes Allergies: Coded Allergies: No Known Allergies (Unverified , 02/14/19) Subjective trach change and removal comfortable at present no distress Objective Last 24 Hour Vital Signs Date Time Temp Pulse Resp B/P (MAP) Pulse Ox O2 Delivery O2 Flow Rate FiO2 02/17/19 08:00 Room Air 02/17/19 08:00 98.0 89 22 96/61 (73) 97 02/17/19 06:55 77 18 100 Room Air 21 74 18 94 02/17/19 04:00 97.9 76 20 100/61 (74) 95 02/17/19 04:00 Room Air 02/17/19 03:41 74 02/17/19 01:01 77 18 100 Room Air 21 84 18 99 02/17/19 00:07 98.4 02/17/19 00:00 98.2 80 20 112/76 (88) 95 02/17/19 00:00 Room Air 02/16/19 23:33 85 02/16/19 20:00 Room Air 02/16/19 20:00 98.4 81 20 128/78 (95) 95 02/16/19 19:09 87 02/16/19 19:05 100 Room Air 21 02/16/19 19:00 99 Room Air 21 02/16/19 18:00 88 20 102/69 (80) 93 02/16/19 17:03 94 17 131/87 (102) 92 02/16/19 17:00 92 18 53/11 (25) 94 02/16/19 16:00 98.6 92 24 123/74 (90) 94 02/16/19 16:00 Room Air 02/16/19 16:00 82 02/16/19 15:00 87 22 113/76 (88) 94 02/16/19 14:00 104 24 107/80 (89) 98 02/16/19 13:18 82 16 100 Room Air 84 18 99 02/16/19 13:18 100 Room Air 21 02/16/19 13:00 81 23 111/38 (62) 95 02/16/19 12:00 80 02/16/19 12:00 98.5 79 21 118/77 (91) 95 02/16/19 12:00 Room Air 02/16/19 11:00 80 22 111/73 (86) 93 02/16/19 10:00 84 23 104/66 (79) 96 Intake and Output 02/16/19 02/17/19 19:00 07:00 Intake Total 570 ml 940 ml Output Total 425 ml 175 ml Balance 145 ml 765 ml Free Water 240 ml 480 ml Tube Feeding 290 ml 460 ml Other 40 ml Output Urine Total 425 ml 175 ml Objective GENERAL: A well-developed female, comfortable at present. NECK: Supple. No adenopathy. LUNGS: Moderate air entry. no wheez or rhonchi rhonchi. CARDIAC: S1, S2. Regular rate and rhythm without murmurs, rubs, gallops. ABDOMEN: Soft, nontender, nondistended. G-tube in place. EXTREMITIES: No cyanosis, clubbing, or edema. SKIN: Exam noted and reviewed. Microbiology Date/Time Source Procedure Growth Status 02/14/19 19:00 Nasal Nares MRSA Culture - Final NO METHICILLIN RESISTANT STAPH AUREUS... Complete 02/14/19 19:00 Rectum - Final NO CARBAPENEM-RESISTANT ENTEROBACTERI... Complete 02/14/19 19:00 Rectum VRE Culture - Final Enterococcus Faecium - Vre Enterococcus Faecalis - Vre Complete Laboratory Tests 02/16/19 12:55: Sodium Level 143, Potassium Level 3.8, Chloride Level 107, Carbon Dioxide Level 28, Anion Gap 8, Blood Urea Nitrogen 12, Creatinine 0.6, Estimat Glomerular Filtration Rate > 60, Glucose Level 108H, Calcium Level 9.4 Current Medications Medications (Trade) Dose Ordered Sig/Mechelle Route PRN Reason Start Time Stop Time Status Last Admin Dose Admin Acetaminophen (Tylenol) 650 mg Q6H PRN GT Mild Pain/Temp > 100.5 02/16/19 20:07 03/18/19 20:06 02/16/19 23:37 Acetaminophen/ Hydrocodone Bitart (Reading 10/325) 1 tab Q4H PRN GT For Pain 02/16/19 20:07 02/23/19 20:06 Albuterol/ Ipratropium (Albuterol/ Ipratropium) 3 ml Q6H PRN HHN Shortness of Breath 02/16/19 20:07 02/21/19 20:06 Albuterol/ Ipratropium (Albuterol/ Ipratropium) 3 ml Q6HRT HHN 02/17/19 01:00 02/20/19 00:59 02/17/19 06:56 Atorvastatin Calcium (Lipitor) 20 mg BEDTIME GT 02/16/19 21:00 03/17/19 20:59 02/16/19 20:30 Dextrose (Dextrose 50%) 25 ml Q30M PRN IV Hypoglycemia 02/16/19 20:15 03/16/19 22:14 Dextrose (Dextrose 50%) 50 ml Q30M PRN IV Hypoglycemia 02/16/19 20:15 03/16/19 22:14 Docusate Sodium (Colace) 100 mg DAILY GT 02/17/19 09:00 03/17/19 08:59 02/17/19 09:30 Insulin Aspart (NovoLOG) Q6HR SUBQ 02/17/19 00:00 03/17/19 00:00 Lansoprazole (Prevacid) 30 mg DAILY@0630 GT 02/17/19 06:30 03/17/19 06:29 02/17/19 05:32 Magnesium Hydroxide (Mom) 30 ml DAILYPRN PRN GT Constipation 02/16/19 20:08 03/18/19 20:07 02/16/19 23:36 Wil Alexander MD Feb 17, 2019 09:39
--- NOTE | 2019-02-17 09:50 | NUR ---
NURSE NOTES: Dr. Alexander at bedside. said to discharge patient on room air.
--- NOTE | 2019-02-17 10:00 | NUR ---
NURSE NOTES: Assisted patient to bathroom. Patient able to ambulate to bathroom with no assistance. Staff remains in the room while patient is in the bathroom. No respiratory distress.
--- NOTE | 2019-02-17 11:55 | Surgery Progress Note ---
Surgery Progress Note Subjective Procedure Performed 1. tracheostomy change 2. bronchoscopy Symptoms: improved, pain absent, tolerating diet, voiding well, passing flatus , BM Objective Last 24 Hour Vital Signs Date Time Temp Pulse Resp B/P (MAP) Pulse Ox O2 Delivery O2 Flow Rate FiO2 02/17/19 08:00 Room Air 02/17/19 08:00 98.0 89 22 96/61 (73) 97 02/17/19 07:40 93 02/17/19 06:55 77 18 100 Room Air 21 74 18 94 02/17/19 04:00 97.9 76 20 100/61 (74) 95 02/17/19 04:00 Room Air 02/17/19 03:41 74 02/17/19 01:01 77 18 100 Room Air 21 84 18 99 02/17/19 00:07 98.4 02/17/19 00:00 98.2 80 20 112/76 (88) 95 02/17/19 00:00 Room Air 02/16/19 23:33 85 02/16/19 20:00 Room Air 02/16/19 20:00 98.4 81 20 128/78 (95) 95 02/16/19 19:09 87 02/16/19 19:05 100 Room Air 21 02/16/19 19:00 99 Room Air 21 02/16/19 18:00 88 20 102/69 (80) 93 02/16/19 17:03 94 17 131/87 (102) 92 02/16/19 17:00 92 18 53/11 (25) 94 02/16/19 16:00 98.6 92 24 123/74 (90) 94 02/16/19 16:00 Room Air 02/16/19 16:00 82 02/16/19 15:00 87 22 113/76 (88) 94 02/16/19 14:00 104 24 107/80 (89) 98 02/16/19 13:18 82 16 100 Room Air 84 18 99 02/16/19 13:18 100 Room Air 21 02/16/19 13:00 81 23 111/38 (62) 95 02/16/19 12:00 80 02/16/19 12:00 98.5 79 21 118/77 (91) 95 02/16/19 12:00 Room Air I&O Intake and Output 02/16/19 02/17/19 19:00 07:00 Intake Total 570 ml 940 ml Output Total 425 ml 175 ml Balance 145 ml 765 ml Free Water 240 ml 480 ml Tube Feeding 290 ml 460 ml Other 40 ml Output Urine Total 425 ml 175 ml Dressing: dry Wound: clean Cardiovascular: RSR Respiratory: clear Abdomen: soft, flat, non-tender, present bowel sounds Extremities: no edema, no tenderness, no cyanosis Laboratory Tests Test 02/16/19 12:55 Sodium Level 143 MMOL/L (136-145) Potassium Level 3.8 MMOL/L (3.5-5.1) Chloride Level 107 MMOL/L (98-107) Carbon Dioxide Level 28 MMOL/L (21-32) Anion Gap 8 mmol/L (5-15) Blood Urea Nitrogen 12 mg/dL (7-18) Creatinine 0.6 MG/DL (0.55-1.30) Estimat Glomerular Filtration Rate > 60 mL/min (>60) Glucose Level 108 MG/DL (74-106) H Calcium Level 9.4 MG/DL (8.5-10.1) Plan Problems: (1) Malfunction of tracheostomy Assessment & Plan: Trach malfunction trach is not positioned properly cannot adequately suction or manipulate recommend trach exchange patient currently stable trach changed bronch performed CT noted false track adjacent to trach insertion with tube going in and out decannulated doing well d/c planning thank you will follow with Aaron Delatorre Feb 17, 2019 11:55
[2019-02-17 12:00] VITALS: BP 104/71
[2019-02-17] MEDS ORDERED: NS 275ml ONE ×2 (15:45→16:49)
[2019-02-17 16:00] VITALS: BP 102/74
--- NOTE | 2019-02-17 16:15 | NUR ---
NURSE NOTES: Telephone report given to EAN Peña of [facility]. She said that patient is going to room 203 bed CYvan Schmidt at bedside made aware.
--- NOTE | 2019-02-17 16:50 | NUR ---
INTER-FACILITY TRANSFER: Patient transferred to [facility] 203 bed C, per Dr. Alexander. Report given to EAN Peña via telephone and [facility] ambulance staff Karime Archuleta. Patient transferred with valuables and no medications. Belongings verified upon transferr and given to patient and patient's son. Family at bedside notified of transfer. Remains room air. No respiratory distress. Stoma s/p trach removal remains clean and dry with dressing remains intact.
--- NOTE | 2019-02-19 07:36 | Discharge Summary ---
Discharge Summary Discharge Summary _ DATE OF ADMISSION: 02/14/2019 DATE OF DISCHARGE: 02/17/2019 DISCHARGED BY: Dr. Alexander REASON FOR ADMISSION: 58 years old female with past medical history of chronic respiratory failure, tracheostomy status, history of traumatic intracerebral hemorrhage , seizure disorder, diabetes mellitus, presented to emergency department from the [facility] for evaluation of tracheostomy. Patient apparently was coughing for the last several days. Patient was seen by renewals representative at the facility, who recommended replacement of tracheostomy. Upon arrival patient showed no signs of respiratory distress. Vital signs were stable. No reported fever or chills. No chest pain or shortness of breath. Laboratory work-up revealed mild leukocytosis WBC 11.7, stable hemoglobin , hematocrit and platelet count. Stable electrolytes and renal parameters. Glucose 108. Stable LFT. EKG revealed sinus rhythm , no acute ischemic changes. Chest X-ray revealed no acute cardiopulmonary pathology, tracheostomy in good position. Right-sided presumed ventriculoperitoneal shunt tubing. In emergency department ED physician was unable to cannulate tracheostomy or suction catheter through the tracheostomy. Per ED physician, attempt to replace tracheostomy in ED could cause significant hemorrhage or loss of the airway. Per discussion with surgeon , recommended tracheostomy replacement via bronchoscopy. Patient subsequently admitted to ICU for further management. CONSULTANTS: surgery Dr. Bustillos [facility] COURSE: Patient admitted to ICU for tracheostomy exchange and airway evaluation via bronchoscopy in operating room. Surgeon followed. CT chest revealed malposition of the tracheostomy, not within the trachea . Approximately 50% tracheal narrowing posterior to the tracheostomy, probably due to extrinsic compression. Bilateral pulmonary parenchymal ground glass opacity, likely on the basis of mild pulmonary edema Patient subsequently undergone on 02/15 bronchoscopy and tracheostomy exchange. During procedure was found tracheal obstruction/stricture. Post procedure tracheostomy care provided. Tracheostomy was cannulated without difficulties. Pulmonary toilet with bronchodilator provided as needed . Patient was suctioned as needed without difficulty. Pulse oximetry remained stable on room air. Venous duplex bilateral lower extremity revealed no evidence of DVT. Supportive care provided. SNF medication resumed. Patient clinically stabilized and was ready for discharge to nursing facility for continuation of care. FINAL DIAGNOSES: Chronic respiratory failure with tracheostomy status Tracheostomy malfunction /obstruction/stricture Status post bronchoscopy with tracheostomy exchange History of recent pneumonia Diabetes mellitus Chronic encephalopathy DISCHARGE MEDICATIONS: See Medication Reconciliation list. DISCHARGE INSTRUCTIONS: Patient was discharged to the correction facility. Follow up with medical doctor at the facility. I have been assigned to dictate discharge summary for this account. I was not involved in the patient's management. Wendy Ralph NP Feb 19, 2019 07:36
--- NOTE | 2019-02-19 14:59 | NUR ---
*-* INSURANCE *-* ALL AVAILABLE CLINICALS HAVE BEEN re-FAXED TO: SAMEERA JUAREZ# [id number] NCM: KATYA [id number] [phone] [id number] [id number] [phone].....REVIEW/CLINICAL
== END 2019-02-17 16:50 | DRG 143 ==
LOC: EDBD 17:49 → EMR 18:20 → EDBEDREQ 18:56 → ICU 20:58 → 2W 02-16 18:45
PROC: 0B21XFZ Change Tracheostomy Device in Trachea, External Approach (ICD-10-PCS; principal; 2019-02-14)
PROC: 0BJ08ZZ Inspection of Tracheobronchial Tree, Via Natural or Artificial Opening Endoscopic (ICD-10-PCS; 2019-02-14)
DX: J95.03 Malfunction of tracheostomy stoma (principal); J39.8 Other specified diseases of upper respiratory tract; G40.909 Epilepsy, unspecified, not intractable, without status epilepticus; J96.10 Chronic respiratory failure, unspecified whether with hypoxia or hypercapnia; Z99.11 Dependence on respirator [ventilator] status; G93.49 Other encephalopathy; E11.9 Type 2 diabetes mellitus without complications; Z74.01 Bed confinement status
CPT/HCPCS: 36415; 71045; 71260; 80048; 80053; 82962; 85025; 85610; 85730; 86850; 86900; 86901; 87081; 93005; 93970; 94640; 94664; 99291; J1815; J7620